=== PATIENT | male | born 1990 | race Two or more races ===

== ENCOUNTER 2017-07-11 18:35 | Observation (INO) | payer SELFPAY ==
--- NOTE | 2017-07-11 19:09 | DR.ABDMALE ---
HPI - Time seen Time seen: 19:10 - PCP Primary Care Physician: SHRUTHI - HPI comment HPI Comment: PATIENT HAD US DONE WITH GALL STONE. INCREASING PAIN WITH FEVER AND NAUSE. GETTING WORSE. - Complaint Chief Complaint Doctors Comments: UPPER ABDOMINAL PAIN. Chief Complaint:: RIGHT UPPER QUANDRANT PAIN SINCE LAST NIGHT, N/V. I WAS SEEN IN [place] THIS [place] , THEY TOLD ME IT WAS MY GALLBLADDER AFTER DOING AN ULTRASOUND. GAVE ME PRESCRIPTIONS, AND TOLD ME TO FOLLOW UP WITH SURGEON. THE PAIN IS JUST GETTING WORSE. Self Treatment fo Chief Complaint: CIPRO 500MG PO - Reviewed Nurses Notes Review: Yes - Mode of arrival Mode of Arrival: Ambulatory - Timing Onset of Chief Complaint: 07/10/17 Came on: Suddenly - Duration Duration: Constant Duration: Hours - Location Location: RUQ, LUQ, Epigastric - Severity Severity: Moderate - Quality Quality: Sharp - Context Onset: Suddenly History of: None - Modifying factors Worsening Factors: Nothing Improving Factors: Nothing - Associated signs and symptoms Associated Signs and Symptoms: Nausea PMH - PMH Past Medical History: Yes Past Medical History: Anxiety, GERD, Hypertension Past Medical History Comment: GALL STONES Past Surgical History: Yes Past Surgical History Comment: TESTICULAR TORSA - Family History History of Family Medical Conditions: No - Social History Does patient currently use any type of tobacco product: No Have you used tobacco products in the last 12 months: No Type of Tobacco Use: None Alcohol Use: Occasionally Do you use any recreational Drugs:: No Lives With: Family Lives Where: Home - infectious screening Have you traveled outside the country in the last 6 months?: No Isolation: Standard ROS - Review of Systems Constitutional: Fever Eyes: No Symptoms Reported ENTM: No Symptoms Reported Respiratoy: No Symptoms Reported Cardiovascular: No Symptoms Reported Gastrointestinal/Abdominal: Abdominal Pain, Nausea Genitourinary: No Symptoms Reported. negative: Dysuria, Frequency, Hematuria Neurological: No Symptoms Reported Musculoskeletal: No Symptoms Reported Integumentary: No Symptoms Reported Hematologic/Lymphatic: No Symptoms Reported Endocrine: No Symptoms Reported All Other Systems: Reviewed and Negative PE - Vital Signs Vital Signs: Temp Pulse Resp BP Pulse Ox 07/11/17 18:36 99.8 F H 76 16 152/83 99 - General Limitations: No Limitations General Appearance: Alert - Head Head Exam: Normal Inspection - Eyes Eye exam: Normal Appearance - ENT ENT Exam: Normal External Ear Exam - Neck Neck Exam: Trachea Midline - Chest Chest Inspection: Symmetric Chest Wall Rise - Respiratory Respiratory Exam: Normal Lung Sounds Bilat Respiratory Exam: Bilateral Clear to Auscultation - Cardiovascular Cardiovascular Exam: Regular Rate, Normal Rhythm, Normal Heart Sounds - Abdominal Exam Abdominal Exam: Normal Bowel Sounds, Soft, Tenderness Abdominal Tenderness: RUQ, LUQ, Epigastrium - Rectal Rectal Exam: Deferred - Back Back Exam: Normal Inspection - Extremeties Extremities Exam: Normal Inspection - Exam: Male: Deferred - Neurologic Neurological Exam: Alert, Oriented X3 - Psychiatric Psychiatric Exam: Normal Affect, Normal Mood - Skin Skin Exam: Normal Color MDM - Additional Information Obtained From Additional information provided by: Family - Differential Diagnosis Differential Diagnosis: Cholcystitis, Cholelethiasis, Diverticular disease, Gastritus/PUD, Gastroenteritis, Pancreatitis, Urinary tract infection, Urolithiasis Course - Treatment Treatment: SEE ORDERS. - Consultation Consultation Comments: DR. YUNG WILL ADMIT PATIENT. DISCUSS CASE WITH SURGEON. HE WANT PCP TO ADMIT PT. - Education/Counseling Education/Counseling: Patient, Family, Education Educated On: Diagnosis, Needs for Follow Up ROR - Labs Reviewed Laboratory Results Reviewed?: Yes Result Diagrams: 07/11/17 19:19 07/11/17 19:19 Laboratory: WBC 14.1 X10^3/uL (3.6-10.0) H 07/11/17 19:19 RBC 5.23 X10^6/uL (4.7-6.0) 07/11/17 19:19 Hgb 15.9 g/dL (13.5-18.0) 07/11/17 19:19 Hct 45.7 % (42.0-54.0) 07/11/17 19:19 MCV 87.5 fL (80.0-100.0) 07/11/17 19:19 MCH 30.4 pg (27.0-34.0) 07/11/17 19:19 MCHC 34.7 g/dL (33.0-35.0) 07/11/17 19:19 RDW 12.5 % (11.6-16.5) 07/11/17 19:19 Plt Count 250 X10^3/uL (150.0-450.0) 07/11/17 19:19 MPV 8.9 fL (7.4-11.0) 07/11/17 19:19 Neut % (Auto) 86.3 % (42.0-75.0) H 07/11/17 19:19 Lymph % (Auto) 7.5 % (21.0-51.0) L 07/11/17 19:19 [place] % (Auto) 6.0 % (0.0-13.0) 07/11/17 19:19 Eos % (Auto) 0.0 % (0.9-2.9) L 07/11/17 19:19 Baso % (Auto) 0.2 % (0.2-1.0) 07/11/17 19:19 Neut # (Auto) 12.2 x10^3/uL (2.2-4.8) H 07/11/17 19:19 Lymph # (Auto) 1.1 X10^3/uL (1.3-2.9) L 07/11/17 19:19 [place] # (Auto) 0.8 x10^3/uL (0.3-0.8) 07/11/17 19:19 Eos # (Auto) 0.0 x10^3/uL (0.0-0.2) 07/11/17 19:19 Baso # (Auto) 0.0 X10^3/uL (0.0-0.1) 07/11/17 19:19 Absolute Nucleated RBC 0.1 /100WBC 07/11/17 19:19 Sodium 138 mmol/L (136-145) 07/11/17 19:19 Corrected Sodium 138 mmol/L (136-145) 07/11/17 19:19 Potassium 4.0 mmol/L (3.5-5.1) 07/11/17 19:19 Chloride 100 mmol/L (98-107) 07/11/17 19:19 Carbon Dioxide 30.0 mmol/L (21-32) 07/11/17 19:19 BUN 8 mg/dL (7-18) 07/11/17 19:19 Creatinine 0.98 mg/dL (0.70-1.30) 07/11/17 19:19 Est GFR (MDRD) Af Amer > 60 (>60) 07/11/17 19:19 Est GFR (MDRD) Non-Af > 60 (>60) 07/11/17 19:19 Glucose 118 mg/dL (65-99) H 07/11/17 19:19 Calcium 8.6 mg/dL (8.5-10.1) 07/11/17 19:19 Corrected Calcium TNP 07/11/17 19:19 Total Bilirubin 0.60 mg/dL (0.2-1.0) 07/11/17 19:19 AST 18 Units/L (15-37) 07/11/17 19:19 ALT 43 Units/L (12-78) 07/11/17 19:19 Alkaline Phosphatase 71 Units/L (46-116) 07/11/17 19:19 Total Protein 8.1 g/dL (6.4-8.2) 07/11/17 19:19 Albumin 3.9 g/dL (3.4-5.0) 07/11/17 19:19 Globulin 4.2 g/dL (2.5-4.5) 07/11/17 19:19 Albumin/Globulin Ratio 0.9 Ratio (1.1-2.1) L 07/11/17 19:19 Amylase 58 Units/L (25-115) 07/11/17 19:19 Lipase 109 Units/L (73-393) 07/11/17 19:19 - XRAY XRAY Interpreted by: Radiologist XRAY Findings: REPORT DISCUSS WITH PATIENT. - Diagnosis Discharge Problem: Cholelithiasis Qualifiers: Cholelithiasis location: gallbladder Cholecystitis presence: with cholecystitis Cholecystitis acuity: acute Biliary obstruction: without biliary obstruction Qualified Code(s): K80.00 - Calculus of gallbladder with acute cholecystitis without obstruction - Discharge Plan Disposition: ADMITTED INPATIENT Condition: Stable - Follow ups/Referrals - Instructions
[2017-07-11 19:28] LABS: BASOPHILS % (AUTO) 0.2 % (0.2-1.0); HEMATOCRIT 45.7 % (42.0-54.0); HEMOGLOBIN 15.9 g/dL (13.5-18.0); LYMPHOCYTES # (AUTO) 1.1 X10^3/uL (1.3-2.9); LYMPHOCYTES % (AUTO) 7.5 % (21.0-51.0); MEAN CORPUSCULAR HEMOGLOBIN 30.4 pg (27.0-34.0); MEAN CORPUSCULAR HGB CONC 34.7 g/dL (33.0-35.0); MEAN CORPUSCULAR VOLUME 87.5 fL (80.0-100.0); MEAN PLATELET VOLUME 8.9 fL (7.4-11.0); MONOCYTES # (AUTO) 0.8 x10^3/uL (0.3-0.8); NEUTROPHILS # (AUTO) 12.2 x10^3/uL (2.2-4.8); NEUTROPHILS % (AUTO) 86.3 % (42.0-75.0); PLATELET COUNT 250 X10^3/uL (150.0-450.0); RED BLOOD COUNT 5.23 X10^6/uL (4.7-6.0); RED CELL DISTRIBUTION WIDTH 12.5 % (11.6-16.5); WHITE BLOOD COUNT 14.1 X10^3/uL (3.6-10.0)
[2017-07-11 19:37] LABS: ALANINE AMINOTRANSFERASE 43 Units/L (12-78); ALBUMIN 3.9 g/dL (3.4-5.0); ALKALINE PHOSPHATASE 71 Units/L (46-116); AMYLASE 58 Units/L (25-115); ASPARTATE AMINO TRANSFERASE 18 Units/L (15-37); BLOOD UREA NITROGEN 8 mg/dL (7-18); CALCIUM 8.6 mg/dL (8.5-10.1); CHLORIDE 100 mmol/L (98-107); COR NA(FOR HYPERGLY) 138 mmol/L (136-145); CREATININE 0.98 mg/dL (0.70-1.30); LIPASE 109 Units/L (73-393); SODIUM 138 mmol/L (136-145); TOTAL PROTEIN 8.1 g/dL (6.4-8.2); eGFR BLACK RACES > 60 (>60); eGFR NON BLACK RACES > 60 (>60)
--- NOTE | 2017-07-11 20:29 | CT ---
CT ABDOMEN AND PELVIS WITHOUT CONTRAST CLINICAL HISTORY: 26-year-old male with abdominal pain. History of gallstones. COMPARISON: None. TECHNIQUE: Multiple contiguous computed tomographic axial images of the abdomen and pelvis were obtai lillian without the use of oral or intravenous contrast. Images were reformatted in the coronal and sagit dmitri planes. FINDINGS: The lung bases demonstrate no evidence of focal air-space opacification, pleural effusion, pneumothor ax, or suspicious pulmonary nodules. The imaged inferior mediastinum and heart are normal in appeara nce without evidence of pericardial effusion. Liver, pancreas and spleen are unremarkable. Cholelithiasis without CT evidence of cholecystitis. The adrenal glands and kidneys are normal bilaterally. There are no nephroureteral stones or perineph rio fluid collections. There is no evidence of hydroureteronephrosis and the ureters run in an unobst ructed course to a well distended urinary bladder. The prostate, seminal vesicles, and external genitalia are within normal limits. The appendix is normal in appearance. The bowel is without obstruction or inflammation and there is no free fluid or free air within the peritoneal cavity. There are no pathologically enlarged lymph n odes in the abdomen or pelvis. The arteriovascular structures are within normal limits for a study without contrast. Soft tissues are normal. The osseous structures are intact without fracture or malalignment. IMPRESSION: 1. Cholelithiasis without CT evidence of cholecystitis. 2. No other acute intra-abdominal or intrapelvic process. Reported By:
[2017-07-11] MEDS ORDERED: MORPHINE SULFATE INJ 4 MG IVP PRN (20:44)
[2017-07-11] MEDS: NS 1000 ML 1,000 ML IV SCH (21:04)
[2017-07-11] MEDS: ZOFRAN INJ 4 MG VIAL IVP PRN (21:05)
[2017-07-11 22:23] VITALS: BMI 31.6
[2017-07-11] MEDS ORDERED: PREVNAR 13 IM ONE (22:23)
[2017-07-12] MEDS ORDERED: PREVNAR 13 IM ONE (05:07)
[2017-07-12] MEDS: NS 1000 ML 1,000 ML IV SCH (05:12)
[2017-07-12 05:26] LABS: BASOPHILS # (AUTO) 0.1 X10^3/uL (0.0-0.1); BASOPHILS % (AUTO) 0.6 % (0.2-1.0); EOSINOPHILS % (AUTO) 0.4 % (0.9-2.9); HEMATOCRIT 43.2 % (42.0-54.0); HEMOGLOBIN 15.3 g/dL (13.5-18.0); LYMPHOCYTES # (AUTO) 2.3 X10^3/uL (1.3-2.9); LYMPHOCYTES % (AUTO) 22.4 % (21.0-51.0); MEAN CORPUSCULAR HEMOGLOBIN 30.9 pg (27.0-34.0); MEAN CORPUSCULAR HGB CONC 35.4 g/dL (33.0-35.0); MEAN CORPUSCULAR VOLUME 87.1 fL (80.0-100.0); MEAN PLATELET VOLUME 9.2 fL (7.4-11.0); MONOCYTES % (AUTO) 9.7 % (0.0-13.0); NEUTROPHILS % (AUTO) 66.9 % (42.0-75.0); PLATELET COUNT 219 X10^3/uL (150.0-450.0); RED BLOOD COUNT 4.96 X10^6/uL (4.7-6.0); RED CELL DISTRIBUTION WIDTH 12.6 % (11.6-16.5); WHITE BLOOD COUNT 10.4 X10^3/uL (3.6-10.0)
[2017-07-12 05:43] LABS: ALANINE AMINOTRANSFERASE 35 Units/L (12-78); ALBUMIN 3.4 g/dL (3.4-5.0); ALKALINE PHOSPHATASE 60 Units/L (46-116); AMYLASE 45 Units/L (25-115); ASPARTATE AMINO TRANSFERASE 14 Units/L (15-37); BLOOD UREA NITROGEN 8 mg/dL (7-18); CALCIUM 8.2 mg/dL (8.5-10.1); CHLORIDE 102 mmol/L (98-107); CREATININE 0.92 mg/dL (0.70-1.30); LIPASE 104 Units/L (73-393); SODIUM 137 mmol/L (136-145); TOTAL PROTEIN 7.2 g/dL (6.4-8.2); eGFR BLACK RACES > 60 (>60); eGFR NON BLACK RACES > 60 (>60)
[2017-07-12] MEDS ORDERED: SUPRANE IN ONE (09:23)
[2017-07-12] MEDS ORDERED: XYLOCAINE 2 % (PLAIN) ONE (09:23)
[2017-07-12] MEDS ORDERED: QUELICIN (OR ANECTINE) ONE (09:23)
[2017-07-12] MEDS ORDERED: ROBINUL ONE (09:23)
[2017-07-12] MEDS ORDERED: TORADOL 30 MG VIAL ONE (09:23)
[2017-07-12] MEDS ORDERED: NEOSTIGMINE INJ ONE (09:23)
[2017-07-12] MEDS ORDERED: DIPRIVAN VIAL ONE (09:23)
[2017-07-12] MEDS ORDERED: NORCURON INJ 10 MG VIAL ONE (09:23)
[2017-07-12] MEDS ORDERED: VERSED ONE (09:23)
[2017-07-12] MEDS ORDERED: ZOFRAN INJ 4 MG VIAL ONE (09:23)
[2017-07-12] MEDS ORDERED: ANCEF 1 GM IV PREMIX* 1 GM/50 ML BAG IV ONE (09:30)
[2017-07-12] MEDS ORDERED: LR 1000 ML IV 1,000 ML IV ONE ×2 (09:30→12:02)
--- NOTE | 2017-07-12 09:49 | DR.H&P ---
H&P - History & Physical for Day of: H&P Date: 07/11/17 - Allergies Allergies/Adverse Reactions: Allergies Allergy/AdvReac Type Severity Reaction Status Date / Time No Known Drug Allergies Allergy Verified 07/11/17 18:43 - Past Medical History Past Medical History: Anxiety, GERD, Hypertension - Past Surgical History Surgical History: Other - Family History Family Medical History: Hypertension - Social History Does patient currently use any type of tobacco product: No Have you used tobacco products in the last 12 months: No Type of Tobacco Use: None Alcohol Use: Occasionally Drug Use: None - Medications Home Medications: Ciprofloxacin HCl [CIPRO 500 MG TAB *] 500 mg PO Q12H 07/11/17 [History Confirmed 07/11/17] Hydroxyzine Pamoate 25 mg PO TID 07/11/17 [History Confirmed 07/11/17] Lisinopril [Lisinopril] 1 tab PO DAILY 07/11/17 [History Confirmed 07/11/17] Lorazepam 0.5 mg PO BID PRN 07/11/17 [History Confirmed 07/11/17] Promethazine HCl [Phenergan Supp 25 mg] 25 mg CA Q6H PRN 07/11/17 [History Confirmed 07/11/17] - Review of Systems Constitutional: Fever Eyes: No Symptoms Reported ENT: No Symptoms Reported Respiratory: No Symptoms Reported Cardiovascular: No Symptoms Reported Gastrointestinal: Nausea, Vomiting, Abdominal Pain. denies: Diarrhea, Constipation, Hematochezia Genitourinary: No Symptoms Reported Musculoskeletal: No Symptoms Reported Skin: No Symptoms Reported Neurological: No Symptoms Reported - Physical Exam Vital Signs: Temperature 99.1 F Pulse Rate [Right Brachial] 68 Pulse Rate 76 Respiratory Rate 20 Blood Pressure [Right Arm] 129/75 Blood Pressure 152/83 O2 Sat by Pulse Oximetry 97 Oriented: Normal Eyes: Normal Ear: Normal Nose: Normal Throat: Normal Respiratory: Clear Throughout Cardiovascular: Normal : Normal Auscultation: Bowel Sounds: Normal Palpation: Normal Tenderness: RUQ, Moderate. negative: Rebound, Guarding, Rigidity Skin: Normal Musculoskeletal: Normal Mood Description: Angry, Depressed Affect: Normal Speech Pattern: Clear - Assessment/Plan (1) Cholelithiasis Qualifiers: Cholelithiasis location: gallbladder Cholecystitis presence: with cholecystitis Cholecystitis acuity: acute Biliary obstruction: without biliary obstruction Qualified Code(s): K80.00 - Calculus of gallbladder with acute cholecystitis without obstruction Status: Acute Plan: ADMIT, MORPHINE 4MG IV Q6H PRN PAIN, ZOFRAN 4MG IV Q6H PRN NAUSEA, CONSULT GENERAL SURGERY, CONTINUE TO MONITOR
[2017-07-12] MEDS ORDERED: ATIVAN TAB 0.5 MG PO PRN (10:35)
[2017-07-12] MEDS ORDERED: MARCAINE 0.25% INJ ONE (10:39)
[2017-07-12] MEDS ORDERED: XYLOCAINE 1% and EPINEPHRINE 1:100,000 ONE (10:39)
[2017-07-12] MEDS ORDERED: FENTANYL INJ 250 mcg ONE (10:59)
[2017-07-12] MEDS ORDERED: NS IRRIGATION 1000 ML 1,000 ML IR ONE ×2 (11:30→12:37)
--- NOTE | 2017-07-12 11:49 | PCM.PROG ---
Progress Note - Progress Note for Day of Date: 07/12/17 - Subjective Subjective: WAS ADMITTED FOR CHOLELITHIASIS. TODAY, HE IS ALERT AND ORIENTED, LYING IN BED ON MORNING ROUNDS. HE CONTINUES WITH COMPLAINTS OF RUQ PAIN AND NAUSEA. HIS VITALS THIS MORNING ARE 98.6-72-18-97%-139/80. LABS WERE OBTAINED. ABNORMAL LAB VALUES INCLUDE THE FOLLOWING: WBC 10.4, GLUCOSE 107, CALCIUM 8.2, AST 14. CONSULTED WITH PATIENT TODAY. HE PLANS FOR LAPROSCOPIC CHOLECYSTECTOMY. WE ARE IN AGREEMENT WITH PLAN. WE WILL RESUME HOME MEDICATIONS AND CONTINUE TO FOLLOW PATIENT AFTER SURGERY. WE WILL FOLLOW UP WITH AM LABS AND CONTINUE TO MONITOR PATIENT. - Past Medical Family Social History Past Med/Fam/Surg Hx: No changes since H&P Allergies: Allergies No Known Drug Allergies Allergy (Verified 07/11/17 18:43) - Review of Systems ROS: No change since H&P - Vital Signs and I&O's Vital Signs: Temperature 98.1 F Pulse Rate [Right Brachial] 72 Pulse Rate 77 Respiratory Rate 20 Blood Pressure [Right Arm] 139/80 Blood Pressure 179/92 O2 Sat by Pulse Oximetry 97 Intake and Output: Intake & Output 07/09/17 07/10/17 07/11/17 07/12/17 11:59 11:59 11:59 11:59 Intake Total 50 Balance 50 - Physical Exam Oriented: Normal Eyes: Normal Ear: Normal Nose: Normal Throat: Normal Respiratory: Normal Cardiovascular: Normal : Normal Auscultation: Bowel Sounds: Normal Palpation: Normal Tenderness: RUQ, Moderate. negative: Rebound, Guarding, Rigidity Skin: Normal Musculoskeletal: Normal Mood Description: Angry, Depressed Affect: Normal Speech Pattern: Clear - Laboratory and Diagnostics Result Diagrams: 07/12/17 04:55 07/12/17 04:55 Labs: Laboratory WBC 10.4 X10^3/uL (3.6-10.0) H 07/12/17 04:55 RBC 4.96 X10^6/uL (4.7-6.0) 07/12/17 04:55 Hgb 15.3 g/dL (13.5-18.0) 07/12/17 04:55 Hct 43.2 % (42.0-54.0) 07/12/17 04:55 MCV 87.1 fL (80.0-100.0) 07/12/17 04:55 MCH 30.9 pg (27.0-34.0) 07/12/17 04:55 MCHC 35.4 g/dL (33.0-35.0) H 07/12/17 04:55 RDW 12.6 % (11.6-16.5) 07/12/17 04:55 Plt Count 219 X10^3/uL (150.0-450.0) 07/12/17 04:55 MPV 9.2 fL (7.4-11.0) 07/12/17 04:55 Neut % (Auto) 66.9 % (42.0-75.0) 07/12/17 04:55 Lymph % (Auto) 22.4 % (21.0-51.0) 07/12/17 04:55 [place] % (Auto) 9.7 % (0.0-13.0) 07/12/17 04:55 Eos % (Auto) 0.4 % (0.9-2.9) L 07/12/17 04:55 Baso % (Auto) 0.6 % (0.2-1.0) 07/12/17 04:55 Neut # (Auto) 7.0 x10^3/uL (2.2-4.8) H 07/12/17 04:55 Lymph # (Auto) 2.3 X10^3/uL (1.3-2.9) 07/12/17 04:55 [place] # (Auto) 1.0 x10^3/uL (0.3-0.8) H 07/12/17 04:55 Eos # (Auto) 0.0 x10^3/uL (0.0-0.2) 07/12/17 04:55 Baso # (Auto) 0.1 X10^3/uL (0.0-0.1) 07/12/17 04:55 Absolute Nucleated RBC 0.1 /100WBC 07/12/17 04:55 Sodium 137 mmol/L (136-145) 07/12/17 04:55 Corrected Sodium TNP 07/12/17 04:55 Potassium 3.7 mmol/L (3.5-5.1) 07/12/17 04:55 Chloride 102 mmol/L (98-107) 07/12/17 04:55 Carbon Dioxide 27.0 mmol/L (21-32) 07/12/17 04:55 BUN 8 mg/dL (7-18) 07/12/17 04:55 Creatinine 0.92 mg/dL (0.70-1.30) 07/12/17 04:55 Est GFR (MDRD) Af Amer > 60 (>60) 07/12/17 04:55 Est GFR (MDRD) Non-Af > 60 (>60) 07/12/17 04:55 Glucose 107 mg/dL (65-99) H 07/12/17 04:55 Calcium 8.2 mg/dL (8.5-10.1) L 07/12/17 04:55 Corrected Calcium TNP 07/12/17 04:55 Total Bilirubin 0.80 mg/dL (0.2-1.0) 07/12/17 04:55 AST 14 Units/L (15-37) L 07/12/17 04:55 ALT 35 Units/L (12-78) 07/12/17 04:55 Alkaline Phosphatase 60 Units/L (46-116) 07/12/17 04:55 Total Protein 7.2 g/dL (6.4-8.2) 07/12/17 04:55 Albumin 3.4 g/dL (3.4-5.0) 07/12/17 04:55 Globulin 3.8 g/dL (2.5-4.5) 07/12/17 04:55 Albumin/Globulin Ratio 0.9 Ratio (1.1-2.1) L 07/12/17 04:55 Amylase 45 Units/L (25-115) 07/12/17 04:55 Lipase 104 Units/L (73-393) 07/12/17 04:55 - Plan (1) Cholelithiasis Status: Acute Qualifiers: Cholelithiasis location: gallbladder Cholecystitis presence: with cholecystitis Cholecystitis acuity: acute Biliary obstruction: without biliary obstruction Qualified Code(s): K80.00 - Calculus of gallbladder with acute cholecystitis without obstruction Plan: MORPHINE 4MG IV Q6H PRN PAIN, ZOFRAN 4MG IV Q6H PRN NAUSEA, CONSULT GENERAL SURGERY, CONTINUE TO MONITOR
[2017-07-12] MEDS ORDERED: ZOFRAN INJ 4 MG VIAL IVP PRN (12:59)
[2017-07-12] MEDS ORDERED: REGLAN INJ 10 MG VIAL IVP PRN (12:59)
[2017-07-12] MEDS ORDERED: PHENERGAN INJ 25 MG IVP PRN (12:59)
[2017-07-12] MEDS ORDERED: BENADRYL INJ 50 MG VIAL IVP PRN (12:59)
[2017-07-12] MEDS ORDERED: DILAUDID INJ IVP PRN (12:59)
--- NOTE | 2017-07-12 13:22 | OR.GENERIC ---
Post-Op Note Generic - Post-Op Note Operative Report: Lap cholecystsctomy and drainage . finding : acute calculus cholecystitis with ischemic wall and hydrops of the GB which had to be emptied multiple large stones impacted in the GB neck EBL 100 cc JACK was left in the GB bed .
[2017-07-12] MEDS ORDERED: ZOFRAN INJ 4 MG VIAL IV PRN (13:30)
[2017-07-12] MEDS: VISTARIL PO SCH (14:21)
[2017-07-12] MEDS: DILAUDID INJ IVP PRN ×3 (14:38→20:46)
[2017-07-12] MEDS: D5 1/2 NS 1000 ML 1,000 ML IV SCH ×2 (14:39→22:30)
[2017-07-12] MEDS: ZESTRIL TAB 5 MG PO SCH (15:21)
[2017-07-12] MEDS: ZOFRAN INJ 4 MG VIAL IVP PRN (16:11)
[2017-07-13] MEDS: VISTARIL PO SCH ×2 (00:02→05:32)
[2017-07-13] MEDS: DILAUDID INJ IVP PRN (03:44)
[2017-07-13 05:29] LABS: BASOPHILS % (AUTO) 0.4 % (0.2-1.0); EOSINOPHILS % (AUTO) 0.5 % (0.9-2.9); HEMATOCRIT 39.3 % (42.0-54.0); HEMOGLOBIN 13.9 g/dL (13.5-18.0); LYMPHOCYTES # (AUTO) 2.3 X10^3/uL (1.3-2.9); LYMPHOCYTES % (AUTO) 24.9 % (21.0-51.0); MEAN CORPUSCULAR HEMOGLOBIN 30.8 pg (27.0-34.0); MEAN CORPUSCULAR HGB CONC 35.4 g/dL (33.0-35.0); MEAN PLATELET VOLUME 9.3 fL (7.4-11.0); MONOCYTES # (AUTO) 0.9 x10^3/uL (0.3-0.8); MONOCYTES % (AUTO) 10.1 % (0.0-13.0); NEUTROPHILS % (AUTO) 64.1 % (42.0-75.0); PLATELET COUNT 188 X10^3/uL (150.0-450.0); RED BLOOD COUNT 4.52 X10^6/uL (4.7-6.0); RED CELL DISTRIBUTION WIDTH 12.6 % (11.6-16.5); WHITE BLOOD COUNT 9.3 X10^3/uL (3.6-10.0)
[2017-07-13] MEDS: D5 1/2 NS 1000 ML 1,000 ML IV SCH (05:32)
[2017-07-13 05:50] LABS: ALANINE AMINOTRANSFERASE 49 Units/L (12-78); ALBUMIN 2.8 g/dL (3.4-5.0); ALKALINE PHOSPHATASE 55 Units/L (46-116); ASPARTATE AMINO TRANSFERASE 33 Units/L (15-37); BLOOD UREA NITROGEN 6 mg/dL (7-18); CALCIUM 8.1 mg/dL (8.5-10.1); CARBON DIOXIDE 26.3 mmol/L (21-32); CHLORIDE 103 mmol/L (98-107); COR CA(FOR HYPOALB) 9.1 mg/dL (8.5-10.1); CREATININE 0.87 mg/dL (0.70-1.30); SODIUM 137 mmol/L (136-145); TOTAL PROTEIN 6.6 g/dL (6.4-8.2); eGFR BLACK RACES > 60 (>60); eGFR NON BLACK RACES > 60 (>60)
[2017-07-13] MEDS ORDERED: LEVAQUIN PREMIX IV 750 MG 750 MG/150 ML BAG IV SCH (09:00)
--- NOTE | 2017-07-13 09:10 | DR.PROGNOT ---
Hospital Progress Notes - Progress Note for Day of: Progress Note Date: 07/13/17 - Chief Complaint Chief Complaint: mild incisional pain . minimal drainage in JACK. LFT normal . CBC normal - Past Medical Family Social History Past Med/Fam/Surg Hx: No changes since H&P Allergies: Allergies No Known Drug Allergies Allergy (Verified 07/11/17 18:43) - Review Of Systems ROS: No change since H&P - Vital Signs Vital Signs: Temperature 98.2 F Pulse Rate [Right Brachial] 72 Pulse Rate 63 Respiratory Rate 18 Blood Pressure [Right Arm] 116/68 Blood Pressure 122/75 O2 Sat by Pulse Oximetry 94 - Physical Exam Oriented: Normal Eyes: Normal Ear: Normal Nose: Normal Throat: Normal Respiratory: Normal Cardiovascular: Normal : Normal GI:Auscultation: Decreased GI:Palpation: Normal GI: Tenderness: RUQ, Moderate. negative: Rebound, Guarding, Rigidity Skin: Normal Musculoskeletal: Normal Mood Description: Angry, Depressed Affect: Normal Speech Pattern: Clear, Appropriate - Laboratory and Diagnostics Result Diagrams: 07/13/17 04:33 07/13/17 04:33 Labs: Laboratory WBC 9.3 X10^3/uL (3.6-10.0) 07/13/17 04:33 RBC 4.52 X10^6/uL (4.7-6.0) L 07/13/17 04:33 Hgb 13.9 g/dL (13.5-18.0) 07/13/17 04:33 Hct 39.3 % (42.0-54.0) L 07/13/17 04:33 MCV 87.0 fL (80.0-100.0) 07/13/17 04:33 MCH 30.8 pg (27.0-34.0) 07/13/17 04:33 MCHC 35.4 g/dL (33.0-35.0) H 07/13/17 04:33 RDW 12.6 % (11.6-16.5) 07/13/17 04:33 Plt Count 188 X10^3/uL (150.0-450.0) 07/13/17 04:33 MPV 9.3 fL (7.4-11.0) 07/13/17 04:33 Neut % (Auto) 64.1 % (42.0-75.0) 07/13/17 04:33 Lymph % (Auto) 24.9 % (21.0-51.0) 07/13/17 04:33 [place] % (Auto) 10.1 % (0.0-13.0) 07/13/17 04:33 Eos % (Auto) 0.5 % (0.9-2.9) L 07/13/17 04:33 Baso % (Auto) 0.4 % (0.2-1.0) 07/13/17 04:33 Neut # (Auto) 6.0 x10^3/uL (2.2-4.8) H 07/13/17 04:33 Lymph # (Auto) 2.3 X10^3/uL (1.3-2.9) 07/13/17 04:33 [place] # (Auto) 0.9 x10^3/uL (0.3-0.8) H 07/13/17 04:33 Eos # (Auto) 0.0 x10^3/uL (0.0-0.2) 07/13/17 04:33 Baso # (Auto) 0.0 X10^3/uL (0.0-0.1) 07/13/17 04:33 Absolute Nucleated RBC 0.0 /100WBC 07/13/17 04:33 Sodium 137 mmol/L (136-145) 07/13/17 04:33 Corrected Sodium TNP 07/13/17 04:33 Potassium 3.6 mmol/L (3.5-5.1) 07/13/17 04:33 Chloride 103 mmol/L (98-107) 07/13/17 04:33 Carbon Dioxide 26.3 mmol/L (21-32) 07/13/17 04:33 BUN 6 mg/dL (7-18) L 07/13/17 04:33 Creatinine 0.87 mg/dL (0.70-1.30) 07/13/17 04:33 Est GFR (MDRD) Af Amer > 60 (>60) 07/13/17 04:33 Est GFR (MDRD) Non-Af > 60 (>60) 07/13/17 04:33 Glucose 108 mg/dL (65-99) H 07/13/17 04:33 Calcium 8.1 mg/dL (8.5-10.1) L 07/13/17 04:33 Corrected Calcium 9.1 mg/dL (8.5-10.1) 07/13/17 04:33 Total Bilirubin 0.80 mg/dL (0.2-1.0) 07/13/17 04:33 AST 33 Units/L (15-37) 07/13/17 04:33 ALT 49 Units/L (12-78) 07/13/17 04:33 Alkaline Phosphatase 55 Units/L (46-116) 07/13/17 04:33 Total Protein 6.6 g/dL (6.4-8.2) 07/13/17 04:33 Albumin 2.8 g/dL (3.4-5.0) L 07/13/17 04:33 Globulin 3.8 g/dL (2.5-4.5) 07/13/17 04:33 Albumin/Globulin Ratio 0.7 Ratio (1.1-2.1) L 07/13/17 04:33 Amylase 45 Units/L (25-115) 07/12/17 04:55 Lipase 104 Units/L (73-393) 07/12/17 04:55 Tissue Pathology To follow 07/12/17 13:06 - Assessment and Plan 1: PO Lap Helen for acute calculus cholecystitis . will D/C and follow in 10 days. - Problem Patient Problems: Patient Problems Cholelithiasis (Acute) K80.20
[2017-07-13] MEDS: ZESTRIL TAB 5 MG PO SCH (09:18)
[2017-07-13] MEDS ORDERED: PERCOCET TAB 5/325 MG PO PRN (09:19)
[2017-07-13 13:33] VITALS: BP 129/62
== END 2017-07-13 13:55 | disposition home or self-care (01) ==
LOC: ER 18:54 → MED/SURG 21:24
PROVIDERS: ADMIT Internal Medicine; ATTEND Internal Medicine
PROC: 3E0234Z Introduction of Serum, Toxoid and Vaccine into Muscle, Percutaneous Approach (ICD-10-PCS; 2017-07-12)
PROC: 0FT44ZZ Resection of Gallbladder, Percutaneous Endoscopic Approach (ICD-10-PCS; principal; 2017-07-12 10:45)
DX: K80.00 Calculus of gallbladder with acute cholecystitis without obstruction (principal); K82.1 Hydrops of gallbladder; R10.11 Right upper quadrant pain; R11.2 Nausea with vomiting, unspecified; K82.8 Other specified diseases of gallbladder; Z23 Encounter for immunization
CPT/HCPCS: 36415; 74176; 80053; 82150; 83690; 85025; 96365; 96374; 96375; 99284; A4216; A4222; Q0177; S0020; 90670; G0378; J0330; J0690; J1170; J1885; J1956; J2001; J2250; J2270; J2405; J2710; J2765; J3010; J3490; J7042; J7120